=== PATIENT | female | born 1950 | race Caucasian/White ===

== ENCOUNTER 2021-12-31 23:08 | Inpatient (IN) | payer OTHER ==
[~2021-12-31] VITALS: Ht 144.8 cm; Wt 59.9 kg
[2022-01-01 01:07] LABS: HEMOGLOBIN 14.2 gm/dl (12.3-15.3); RED BLOOD COUNT 4.75 M/UL (4.00-5.10); WHITE BLOOD COUNT 9.3 K/UL (4.5-11.0)
[2022-01-01 01:24] LABS: BUN/CREATININE RATIO 21 (0-10)
[2022-01-01] MEDS ORDERED: FENOFIBRATE200 MG PO (06:03)
[2022-01-01] MEDS ORDERED: ZETIA10 MG PO (06:04)
[2022-01-01] MEDS ORDERED: CARVEDILOL6.25 MG PO (06:05)
[2022-01-01] MEDS ORDERED: LISINOPRIL2.5 MG PO (06:06)
[2022-01-01] MEDS ORDERED: DIAZEPAM5 MG PO (07:15)
[2022-01-01] MEDS ORDERED: PHENERGAN 25 MG25 M1 PO (07:16)
[2022-01-01] MEDS ORDERED: GLUCOPHAGE 500500 MG PO (07:17)
[2022-01-01] MEDS ORDERED: QUESTRAN LIGHT 44 GM PO (07:20)
[2022-01-01] MEDS ORDERED: PHENOBARBITAL32.4 MG PO (07:24)
[2022-01-01] MEDS ORDERED: PROVENTIL HFA6.7 GM INH (13:59)
[2022-01-01] MEDS ORDERED: WIXELA 500-501 EACH INH (14:02)
[2022-01-01] MEDS ORDERED: IPRAT-ALBUT 0.5-3 ML INH (14:05)
[2022-01-02 03:28] LABS: HEMOGLOBIN 12.8 gm/dl (12.3-15.3); RED BLOOD COUNT 4.3 M/UL (4.00-5.10)
[2022-01-02 03:29] LABS: WHITE BLOOD COUNT 5.6 K/UL (4.5-11.0)
[2022-01-02 03:47] LABS: BUN/CREATININE RATIO 32 (0-10)
[2022-01-03 02:33] LABS: HEMOGLOBIN 12.8 gm/dl (12.3-15.3); RED BLOOD COUNT 4.31 M/UL (4.00-5.10); WHITE BLOOD COUNT 6.4 K/UL (4.5-11.0)
[2022-01-03 03:01] LABS: BUN/CREATININE RATIO 31 (0-10)
[2022-01-03] MEDS ORDERED: SPIRIVA RESPIMAT4 GM INH (15:57)
[2022-01-03] MEDS ORDERED: SYMBICORT 160-1 INHA INH (15:57)
[2022-01-03] MEDS ORDERED: PREDNISONE20 MG PO (15:57)
[2022-01-03] MEDS ORDERED: ASPIRIN EC81 MG PO (16:08)
--- NOTE | 2022-01-03 16:31 | NUR ---
PT RA STAT IS 86%
--- NOTE | 2022-01-03 18:44 | NUR ---
PATIENT STATES SHE HAS BEEN WAITING ONN 02 COMPANY FOR OVER 2 HOURS AND IS PLANNING TO LEAVE SOON HER SON GETS HERE WITH A PORTABLE 02 TANK. SHE CAME UP TO THE NURSES STATION WITHOUT 02 ON TO TELL ME THIS AND I CJECKED HER 02 SATS AND THEY WERE 94% ON RA. I TOLD THE PATIENT I RECCOMENDED SHE WAITED BUT THAT SHE WAS FREE TO LEAVE IF SHE WANTED.
== END 2022-01-03 19:25 | disposition home or self-care (01) | DRG 189 ==
LOC: ER1 23:08 → PROG CARE 01-01 04:43 → M/S 01-01 04:43 → CDU 01-01 04:43 → PROG CARE 01-01 05:57 → M/S 01-01 12:47
PROVIDERS: Internal Medicine; Physician Assistant; ADMIT Internal Medicine
PROC: B24BZZZ Ultrasonography of Heart with Aorta (ICD-10-PCS; principal; 2022-01-01)
DX: J96.21 Acute and chronic respiratory failure with hypoxia (principal); J44.1 Chronic obstructive pulmonary disease with (acute) exacerbation; I25.10 Atherosclerotic heart disease of native coronary artery without angina pectoris; Z20.822 Contact with and (suspected) exposure to COVID-19; I10 Essential (primary) hypertension; F41.9 Anxiety disorder, unspecified; E78.5 Hyperlipidemia, unspecified; K52.9 Noninfective gastroenteritis and colitis, unspecified; I34.0 Nonrheumatic mitral (valve) insufficiency; E11.9 Type 2 diabetes mellitus without complications; Z95.1 Presence of aortocoronary bypass graft; Z82.49 Family history of ischemic heart disease and other diseases of the circulatory system; Z87.891 Personal history of nicotine dependence; Z90.49 Acquired absence of other specified parts of digestive tract; Z99.81 Dependence on supplemental oxygen
CPT/HCPCS: ECHO; 0240U; 36415; 36600; 71045; 78452; 80048; 80053; 82550; 82553; 82803; 82962; 83036; 83880; 84484; 85025; 85379; 93005; 93017; 93306; 94640; 94664; 94760; 96374; 99285; A9502; J1650; J2785; J2920; J2930; Q9967